=== PATIENT | male | born 1935 | race Caucasian/White ===

== ENCOUNTER → 2018-01-16 | Outpatient (CLI) | payer OTHER ==
[~2018-01-16] VITALS: Ht 180.3 cm; Wt 70.8 kg
[~2018-01-16] MED LIST: ADULT ASPIRIN81 MG PO; ALLEGRA-D 121 TABLET PO; CARDURA2 M1 PO; COLACE100 MG PO; FISH OIL 1,2001 EAC4 PO; LOPRESSOR25 MG PO; MIRALAX17 GM PO; NEXIUM40 MG PO; SLOW-MAG,MAG DE64 MG PO; ULTRAM50 MG PO; ZANTAC150 MG PO; ZESTRIL2.5 MG PO
[2018-01-16 10:31] LABS: HEMATOCRIT 26.1 % (38.0-50.0); HEMOGLOBIN 9.1 G/DL (12.5-16.6); MCV 98.9 FL (86-99)
[2018-01-16 10:41] LABS: CHLORIDE 108 mEq/L (99-109); POTASSIUM 4.4 mEq/L (3.7-5.4); SODIUM 140 mEq/L (136-147)
[2018-01-16 10:43] LABS: GLUCOSE 106 mg/dL (70-99)
[2018-01-16 10:47] LABS: CREATININE 1.4 mg/dL (0.6-1.3); GFR ESTIMATE (CALCULATED) 51 mL/min/ (58.99-99999)
[2018-01-16 10:48] LABS: UREA NITROGEN (BUN) 27 mg/dL (9-23)
== END | disposition home or self-care (01) ==
LOC: AMB 09:35
PROVIDERS: Internal Medicine Gastroenterology
PROC: 0DB68ZX Excision of Stomach, Via Natural or Artificial Opening Endoscopic, Diagnostic (ICD-10-PCS; principal; 2018-01-16)
DX: K29.70 Gastritis, unspecified, without bleeding (principal); R10.9 Unspecified abdominal pain; R63.4 Abnormal weight loss
CPT/HCPCS: 80048; 85014; 85018; 88305; 88342 TC